=== PATIENT | male | born 1990 | race African-American/Black ===

== ENCOUNTER 2018-11-30 09:42 | Emergency (ER) | payer SELFPAY ==
[2018-11-30] MEDS ORDERED: DIPH/PERTUSS(ACELL)/TETANUS VAC/PF 0.5 ML SYR (>=10YO) IM ONE (10:08)
[2018-11-30] MEDS ORDERED: AMOXICILLIN TR/POT CLAVULANATE 500-125 MG TAB PO ONE (10:09)
[2018-11-30] MEDS ORDERED: HYDROCODONE/ACETAMINOPHEN 5-325 MG TABLET PO ONE (10:09)
[2018-11-30] MEDS ORDERED: AMOXICILLIN TRIHYD 250 MG CAPSULE PO ONE (10:09)
--- NOTE | 2018-11-30 10:13 | ER Document Report ---
ED Medical Screen (RME) - General Chief Complaint: Dog Bite Stated Complaint: DOG BITE Time Seen by Provider: 11/30/18 10:08 Primary Care Provider: SANDY SALINAS MD [Primary Care Provider] - Follow up as needed Mode of Arrival: Ambulatory Information source: Patient Notes: Patient was bit by a neighborhood dog this morning prior to arrival. Patient with large laceration to the medial aspect of right leg and puncture wound to the lateral aspect of the leg. I have greeted and performed a rapid initial assessment of this patient. A comprehensive ED assessment and evaluation of the patient, analysis of test results and completion of the medical decision making process will be conducted by additional ED providers. TRAVEL OUTSIDE OF THE [place] IN LAST 30 DAYS: No - Related Data Allergies/Adverse Reactions: No Known Allergies Allergy (Unverified 11/30/18 09:45) Past Medical History - Social History Frequency of alcohol use: Occasional Drug Abuse: Marijuana Renal/ Medical History: Denies: Hx Peritoneal Dialysis Physical Exam - Vital signs Vitals: Temp Pulse Resp BP Pulse Ox 97.4 F 76 16 115/79 100 11/30/18 09:49 11/30/18 09:49 11/30/18 09:49 11/30/18 09:49 11/30/18 09:49 - Skin Skin irregularity: Laceration - Laceration to medial aspect of right leg with puncture wounds to the lateral aspect Course - Vital Signs Vital signs: Temp Pulse Resp BP Pulse Ox 97.4 F 76 16 115/79 100 11/30/18 09:49 11/30/18 09:49 11/30/18 09:49 11/30/18 09:49 11/30/18 09:49 Doctor's Discharge - Discharge Referrals: SANDY SALINAS MD [Primary Care Provider] - Follow up as needed
--- NOTE | 2018-11-30 10:43 | RADIOLOGY REPORT (SQ) ---
EXAM DESCRIPTION: TIBIA FIBULA RIGHT COMPLETED DATE/TIME: 11/30/2018 10:28 am REASON FOR STUDY: dog bite COMPARISON: None. NUMBER OF VIEWS: Two views right tibia and fibula. LIMITATIONS: None. FINDINGS: Bones intact. Soft tissue laceration along the medial proximal calf. No radiopaque forei gn body. OTHER: No other significant finding. IMPRESSION: No fracture or radiopaque foreign body. Soft tissue injury. TECHNICAL DOCUMENTATION: JOB ID: [id number] Reading location - IP/workstation name: [email or web address]
--- NOTE | 2018-11-30 11:19 | ER Document Report ---
ED Animal Bite - General Chief Complaint: Dog Bite Stated Complaint: DOG BITE Time Seen by Provider: 11/30/18 10:08 Primary Care Provider: SANDY SALINAS MD [EMERITUS] - Follow up as needed Mode of Arrival: Ambulatory TRAVEL OUTSIDE OF THE [place] IN LAST 30 DAYS: No - HPI Notes: Patient is a 28-year-old male presents to the emergency department with a dog bite. Patient states that he was jogging this morning when a dog that look like a pit bull mix ran out and latched onto his right lower leg. Patient states the exact address in which the dog came from and states he has seen him multiple times running free and that the neighbors never have the dog on a leash. Patient reports a laceration to the inside and outside of the right calf. Patient is unsure if the shots on the dog are up-to-date. Denies up-to-date tetanus. Patient denies blood thinners or any past medical history. Patient denies diabetes. - Related Data Allergies/Adverse Reactions: No Known Allergies Allergy (Unverified 11/30/18 09:45) Past Medical History - General Information source: Patient - Social History Smoking Status: Current Every Day Smoker Frequency of alcohol use: Occasional Drug Abuse: Marijuana Lives with: Family Family History: None Patient has suicidal ideation: No Patient has homicidal ideation: No - Past Medical History Cardiac Medical History: Reports: None Pulmonary Medical History: Reports: None EENT Medical History: Reports: None Neurological Medical History: Reports: None Endocrine Medical History: Reports: None Renal/ Medical History: Reports: None. Denies: Hx Peritoneal Dialysis Malignancy Medical History: Reports None GI Medical History: Reports: None Musculoskeletal Medical History: Reports None Skin Medical History: Reports None Psychiatric Medical History: Reports: None Traumatic Medical History: Reports: None Infectious Medical History: Reports: None Surgical Hx: Negative - Immunizations Immunizations up to date: No Review of Systems - Review of Systems Constitutional: No symptoms reported EENT: No symptoms reported Cardiovascular: No symptoms reported Respiratory: No symptoms reported Gastrointestinal: No symptoms reported Genitourinary: No symptoms reported Male Genitourinary: No symptoms reported Musculoskeletal: No symptoms reported Skin: See HPI Hematologic/Lymphatic: No symptoms reported Neurological/Psychological: No symptoms reported Physical Exam - Vital signs Vitals: Temp Pulse Resp BP Pulse Ox 97.4 F 76 16 115/79 100 11/30/18 09:49 11/30/18 09:49 11/30/18 09:49 11/30/18 09:49 11/30/18 09:49 Interpretation: Normal - Notes Notes: GENERAL: Well-appearing, well-nourished and in no acute distress. HEAD: Atraumatic, normocephalic. EYES: Pupils equal round and reactive to light, extraocular movements intact, sclera anicteric, conjunctiva are normal. ENT: Moist mucous membranes. NECK: Normal range of motion, supple without lymphadenopathy or JVD. LUNGS: Breath sounds clear to auscultation bilaterally and equal. No wheezes rales or rhonchi. HEART: Regular rate and rhythm without murmurs, rubs or gallops. ABDOMEN: Soft, nontender, normoactive bowel sounds. No guarding, no rebound. No masses appreciated. BACK: No cervical, thoracic, lumbar midline tenderness. No saddle anesthesia, normal distal neurovascular exam. GENITOURINARY: Deferred. EXTREMITIES: 4 cm laceration noted to the medial aspect of the right lower extremity, bleeding controlled, subcutaneous tissue visualized, unable to visualize muscle, tendon or bone. The laceration is surrounded by multiple 0.5 cm superficial lacerations. 2 cm laceration noted to the lateral aspect of the right lower extremity, bleeding controlled, this appears to superficial. NEUROLOGICAL: Cranial nerves II through XII grossly intact. Normal speech, normal gait. PSYCH: Normal mood, normal affect. SKIN: Warm, Dry, normal turgor, no rashes or lesions noted. Course - Re-evaluation Re-evalutation: 11/30/18 A report was made to animal control by the RN caring for this patient. She reports the form was filled out and faxed to [employer]. Discussed case with supervising physician Dr. Morris who evaluated patient as bedside. His recommendations are to loosely close the 4 cm laceration without close approximation due to risk for infection and place a jacob drain to aide in drainage over the next few days. See procedure note for laceration repair. Patient TDAP was updated in triage. Patient to take Tylenol or Motrin for pain. To return Sunday for follow up and jacob drain removal. Per Dr. Morris no rabies vaccination or prophylaxis is needed at this time. Patient to follow up with animal control if he does not hear from them within 24 hours. Patient verbalized understanding. - Vital Signs Vital signs: Temp Pulse Resp BP Pulse Ox 98.1 F 63 15 128/65 H 100 11/30/18 13:23 11/30/18 13:23 11/30/18 13:23 11/30/18 13:23 11/30/18 13:23 Procedures - Laceration/Wound Repair Right Medial Leg Wound length (cm): 4 Wound's Depth, Shape: Superficial, Irregular Laceration pre-procedure: Sterile PPE donned, Sterile drapes applied, Shur-Clens applied Anesthetic type: 1% Lidocaine w/epi Volume Anesthetic (mLs): 9 Irrigated w/ Saline (mLs): 500 Wound Repaired With: Sutures, Jacob drain Suture Size/Type: 3:0, Nylon Number of Sutures: 2 Post-procedure wound care: Other - Loose abd pad and kerlix applied to leg Notes: 11/30/18 Xray was negative for acute abnormality to include foreign body. The wounds were copiously irrigated and cleansed with saline and shur clens. Two loose sutures were placed to bring together the 4 cm laceration, the wound was not closed. A jacob drain was placed to aide in drainage. Patient tolerated well. 11/30/18 20:44 Adult Front & Back picture: 1 - 4 cm laceration from dog bite Discharge - Discharge Clinical Impression: Dog bite Qualifiers: Encounter type: initial encounter Qualified Code(s): W54.0XXA - Bitten by dog, initial encounter Condition: Stable Disposition: HOME, SELF-CARE Additional Instructions: Today you were seen in the emergency department after a dog bite. We have contacted animal control and made them aware of the dog bite from [address] [place] [address] Road. Please follow up with animal control if they do not contact you within in the next 24 hours. Typically animal bites are not sutured together due to significant risk of infection, due to the size of your laceration two loose sutures were placed. The loose sutures will allow for appropriate drainage. A jacob drain was placed underneath the sutures - you will need to return to the emergency department on Sunday to have this removed and to have the wound re-evaluated. It is not abnormal to have the wound drain at times. Please return sooner if you have fever, pus draining from wound, chills, or any other concerning signs or symptoms. Use Tylenol or Motrin as needed for pain. Animal Bites Animal bites are often heavily contaminated with bacteria. In spite of thorough cleansing and proper treatment, these wounds frequently become infected. Bite wounds of the hands are especially prone to complications. Bites are dressed, if possible. Large wounds may require suturing after internal cleansing. Because of infection risk, some large wounds must remain unstitched. Your doctor is trained to advise you on the best treatment for your bite. Call the doctor at once if the wound becomes red, swollen, warm, increasi ngly painful, or if it begins to drain. Danger signs also include red streaks up the involved extremity, swollen glands in the groin or under the arm, or fever and chills. The risk of rabies from domestic animals is very low. Bats, sick animals, and wild animals may expose you to rabies. The physician, or the health department, will inform you if you will need to receive the rabies vaccine. Prescriptions: Amox Tr/Potassium Clavulanate [Augmentin 875-125 Tablet] 1 tab PO BID 5 Days #10 tablet Referrals: SANDY SALINAS MD [EMERITUS] - Follow up as needed
[2018-11-30] MEDS ORDERED: LIDOCAINE 1%/EPINEPHRINE INJ 20 ML VIAL INJ ONE (11:26)
[2018-11-30 13:24] VITALS: BP 128/65
== END 2018-11-30 13:41 | disposition home or self-care (01) ==
LOC: ER 09:42
DX: S81.851A Open bite, right lower leg, initial encounter (principal); W54.0XXA Bitten by dog, initial encounter; Y93.02 Activity, running; Y92.410 Unspecified street and highway as the place of occurrence of the external cause; Z23 Encounter for immunization
CPT/HCPCS: 99283; 90471; 73590; 90715; 12002; J3490 ×2

== ENCOUNTER 2018-12-03 13:53 | Emergency (ER) | payer SELFPAY ==
[2018-12-03 14:09] VITALS: BP 127/78
--- NOTE | 2018-12-03 14:48 | ER Document Report ---
HPI - HPI Patient complains to provider of: Wound recheck suture and drain removal Time Seen by Provider: 12/03/18 14:35 Onset: Other - 4 days ago Onset/Duration: Persistent Pain Level: 1 Context: Patient presents to the emergency department for wound recheck drain removal post dog bite 4 days ago. He denies pain. He reports he is taking his medication as prescribed. Site looks benign. denies fever vomiting diarrhea. Associated Symptoms: None Exacerbated by: Denies Relieved by: Denies Similar symptoms previously: Yes Recently seen / treated by doctor: Yes Past Medical History - General Information source: Patient - Social History Smoking Status: Current Every Day Smoker Cigarette use (# per day): Yes Drug Abuse: Marijuana Lives with: Family Family History: None Patient has suicidal ideation: No Patient has homicidal ideation: No - Medical History Medical History: Negative Renal/ Medical History: Denies: Hx Peritoneal Dialysis Surgical Hx: Negative - Immunizations Immunizations up to date: No Vertical Provider Document - CONSTITUTIONAL Agree With Documented VS: Yes Exam Limitations: No Limitations General Appearance: WD/WN, No Apparent Distress - INFECTION CONTROL TRAVEL OUTSIDE OF THE [place] IN LAST 30 DAYS: No - HEENT HEENT: Atraumatic, Normocephalic - NECK Neck: Supple - RESPIRATORY Respiratory: No Respiratory Distress - MUSCULOSKELETAL/EXTREMETIES Musculoskeletal/Extremeties: MAEW, FROM, Non-Tender - NEURO Level of Consciousness: Awake, Alert, Appropriate Motor/Sensory: No Motor Deficit - DERM Integumentary: Warm, Dry Adult Front & Back Diagram: 1 - Wound noted to right lower leg medially with drain into sutures site benign no erythema no swelling no warmth no discharge. Drain and sutures removed covered with 2 Steri-Strips and a Band-Aid. Course - Re-evaluation Re-evalutation: 12/03/18 14:51 Drain removed without problems 2 sutures removed. 2 Steri-Strips applied covered with Band-Aid. Patient tolerated procedure without problems. Patient instructed on signs and symptoms of infection. Instructed to return the emergency department for any signs of infection or concerns he verbalized understanding to all instructions. Dictation of this chart was performed using voice recognition software; therefore, there may be some unintended grammatical errors. - Vital Signs Vital signs: Temp Pulse Resp BP Pulse Ox 98.4 F 73 18 127/78 H 98 12/03/18 14:04 12/03/18 14:04 12/03/18 14:04 12/03/18 14:04 12/03/18 14:04 Discharge - Discharge Clinical Impression: Encounter for wound re-check, drain and suture removal Condition: Stable Disposition: HOME, SELF-CARE Instructions: Animal Bites ([facility]), Care of Steri-Strip Closure ([facility]) Additional Instructions: *You have been treated for wound recheck removal of drain and sutures *Continue to take medication as prescribed *Monitor the site for signs of infection such as increasing pain, redness, swelling, warmth *keep the area clean, let the steri strips roll off, do not pick them off *Follow up with a primary care provider within one week for recheck *Return to ED for signs of infection, worsening condition, changes, needs Monitor your blood pressure. Your blood pressure was elevated today. This may be because you were anxious, in pain or because you need medication. It is important to follow up with your primary care provider for full evaluation. Forms: Elevated Blood Pressure
== END 2018-12-03 14:55 | disposition home or self-care (01) ==
LOC: ER 13:53
DX: Z48.03 Encounter for change or removal of drains (principal); F17.200 Nicotine dependence, unspecified, uncomplicated
CPT/HCPCS: 99281